=== PATIENT | male | born 1985 | race Caucasian/White ===

== ENCOUNTER 2021-10-20 13:24 | Outpatient (CLI) | payer OTHER, SELFPAY ==
--- NOTE | ~2021-10-20 | XR_ITS ---
XR_[id number] DATE: 10/20/2021 13:50 INDICATION: Posterior and bilateral neck pain TECHNIQUE: AP, open-mouth, lateral views COMPARISON: None FINDINGS: There is levoscoliosis of the cervical and upper thoracic spine and prominent reversal cerv ical curvature. There is mild degenerative disc disease C3-4 and C4-5. C1 and C2 are normally aligned and the odontoid process is intact. No fracture or dislocation or lock ed facet or prevertebral soft tissue swelling. IMPRESSION: Levoscoliosis of cervical and upper thoracic spine Reversal cervical curvature Mild degenerative disc disease at C3-4 and C4-5 Reviewed, dictated and finalized at [facility]. Reviewed, dictated and finalized at [facility].
[2021-10-20 13:36] LABS: Basophils Absolute Auto 0.06 K/mm3 (0.00-0.10); Basophils Percent Auto 0.5 % (0.0-1.0); Eosinophils Absolute Auto 0.17 K/mm3 (0.02-0.50); Eosinophils Percent Auto 1.5 % (1.0-6.0); Hematocrit 48.3 % (40.0-54.0); Hemoglobin 15.8 g/dL (14.0-18.0); Immature Granulocyte Absolute 0.04 K/mm3 (0.00-0.00); Immature Granulocyte Percent A 0.3 % (0.0-0.0); Lymphocytes Absolute Auto 2.92 K/mm3 (1.10-4.50); Lymphocytes Percent Auto 25.4 % (18.0-42.0); Mean Corpuscular HGB Conc 32.7 g/dL (32.0-36.0); Mean Corpuscular Hemoglobin 29.6 pg (27.0-31.0); Mean Corpuscular Volume 90.4 fL (78.0-102.0); Mean Platelet Volume 10.3 fl (8.7-11.0); Monocytes Absolute Auto 0.57 K/mm3 (0.10-0.90); Neutrophils Absolute Auto 7.7 K/mm3 (1.7-7.2); Neutrophils Percent Auto 67.3 % (50.0-70.0); Platelet Count Result 223 K/mm3 (150-420); Red Blood Count 5.34 M/mm3 (4.70-6.10); Red Cell Distribution Width 13.8 % (11.6-14.4); White Blood Count 11.5 K/mm3 (4.8-10.8)
[2021-10-20 13:52] LABS: Alanine Aminotransferase 25 U/L (16-63); Albumin Level 3.7 g/dL (3.4-5.0); Alkaline Phosphatase 99 U/L (46-116); Anion Gap 8 mmol/L (8-16); Aspartate Amino Transferase 18 U/L (15-37); Bilirubin,Total 0.6 mg/dL (0.00-1.00); Blood Urea Nitrogen 14 mg/dL (7-18); CRP 1.7 mg/dL (0.0-0.9); Calcium 9.5 mg/dL (8.5-10.1); Carbon Dioxide 27 mmol/L (21-32); Chloride 104 mmol/L (98-108); Estimated Glomerular Filt Rate 49; Glucose 92 mg/dL (70-99); Osmolality Calculated 288 mOsm/kg (285-295); Potassium 4.2 mmol/L (3.5-5.1); Sodium 139 mmol/L (136-145); Total Protein 8.6 g/dL (6.4-8.2)
== END 2021-10-20 13:25 | disposition home or self-care (01) ==
LOC: CHSIMG 13:27
PROVIDERS: PCP Internal Medicine; Visit Provider Nurse Practitioner Family
DX: R94.4 Abnormal results of kidney function studies (principal); M54.2 Cervicalgia
CPT/HCPCS: 36415; 72040; 80053; 85025; 86140

== ENCOUNTER 2021-11-01 15:17 | Outpatient (CLI) | payer OTHER, SELFPAY ==
--- NOTE | ~2021-11-01 | US_ITS ---
US retroperitoneal comp 11/01/2021 15:44 Procedure: Realtime transabdominal ultrasound of the kidneys and bladder. Indication: Abnormal renal function Comparison: No prior studies for comparison. Findings: Right renal echotexture is slightly increased. No masses, hydronephrosis or stones. The rig ht kidney measures 9.4 cm and left kidney measures 10.5 cm. Bladder within normal limits. Impression: 1: Slightly increased right renal echotexture, nonspecific. Otherwise, unremarkable testicular ultras ound. Reviewed, dictated and finalized at location [facility]. Impression: 1: Slightly increased right renal echotexture, nonspecific. Otherwise, unremark able testicular ultrasound.
== END 2021-11-01 15:18 | disposition home or self-care (01) ==
LOC: CHSIMG 15:18
PROVIDERS: PCP Internal Medicine; Visit Provider Internal Medicine
DX: R94.4 Abnormal results of kidney function studies (principal)
CPT/HCPCS: 76770

== ENCOUNTER 2023-05-24 14:11 | Outpatient (CLI) | payer OTHER, SELFPAY ==
--- NOTE | ~2023-05-24 | XR_ITS ---
XR shoulder LT min 2V DATE: 05/24/2023 14:41 INDICATION: Shoulder pain TECHNIQUE: 4 views COMPARISON: None FINDINGS: No fracture or dislocation, periosteal reaction or bone destruction or abnormal soft tissue calcification. IMPRESSION: No significant shoulder abnormality Reviewed, dictated and finalized at [facility]. [place] [employer]IST
--- NOTE | ~2023-05-24 | XR_ITS ---
XR shoulder RT min 2V DATE: 05/24/2023 14:41 INDICATION: Shoulder pain. No known injury. TECHNIQUE: 4 views COMPARISON: 04/09/2019 right shoulder FINDINGS: No fracture or dislocation, periosteal reaction or bone destruction or abnormal soft tissue calcification is detected. IMPRESSION: Negative Reviewed, dictated and finalized at location [facility]. 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
[2023-05-24 14:44] LABS: Basophils Absolute Auto 0.05 K/mm3 (0.00-0.10); Basophils Percent Auto 0.5 % (0.0-1.0); Eosinophils Absolute Auto 0.23 K/mm3 (0.02-0.50); Eosinophils Percent Auto 2.4 % (1.0-6.0); Hemoglobin 15.2 g/dL (14.0-18.0); Immature Granulocyte Absolute 0.03 K/mm3 (0.00-0.00); Immature Granulocyte Percent A 0.3 % (0.0-0.0); Lymphocytes Absolute Auto 3.36 K/mm3 (1.10-4.50); Lymphocytes Percent Auto 34.7 % (18.0-42.0); Mean Corpuscular HGB Conc 32.3 g/dL (32.0-36.0); Mean Corpuscular Hemoglobin 28.4 pg (27.0-31.0); Mean Corpuscular Volume 87.7 fL (78.0-102.0); Mean Platelet Volume 10.7 fl (8.7-11.0); Monocytes Absolute Auto 0.66 K/mm3 (0.10-0.90); Monocytes Percent Auto 6.8 % (2.0-11.0); Neutrophils Absolute Auto 5.3 K/mm3 (1.7-7.2); Neutrophils Percent Auto 55.3 % (50.0-70.0); Platelet Count Result 249 K/mm3 (150-420); Red Blood Count 5.36 M/mm3 (4.70-6.10); Red Cell Distribution Width 13.3 % (11.6-14.4); White Blood Count 9.7 K/mm3 (4.8-10.8)
[2023-05-24 15:30] LABS: Alanine Aminotransferase 29 U/L (16-63); Albumin Level 3.6 g/dL (3.4-5.0); Alkaline Phosphatase 87 U/L (46-116); Anion Gap 11 mmol/L (8-16); Aspartate Amino Transferase 25 U/L (15-37); Bilirubin,Total 0.6 mg/dL (0.00-1.00); Blood Urea Nitrogen 13 mg/dL (7-18); CRP 1.1 mg/dL (0.0-0.9); Calcium 9.4 mg/dL (8.5-10.1); Carbon Dioxide 25 mmol/L (21-32); Chloride 104 mmol/L (98-108); Estimated Glomerular Filt Rate 55; Glucose 97 mg/dL (70-99); Osmolality Calculated 290 mOsm/kg (285-295); Potassium 4.4 mmol/L (3.5-5.1); Sodium 140 mmol/L (136-145); Thyroid Stimulating Hormone 1.21 uIU/mL (0.36-3.74); Total Protein 7.8 g/dL (6.4-8.2); Uric Acid 8.3 mg/dL (3.5-7.2)
[2023-05-31 05:23] LABS: Cyclic Citrullinated Peptide <16 Units (<20)
== END 2023-05-24 14:12 | disposition home or self-care (01) ==
LOC: CHSLAB 14:13
PROVIDERS: PCP Internal Medicine; Visit Provider Internal Medicine
DX: N18.2 Chronic kidney disease, stage 2 (mild) (principal); M25.512 Pain in left shoulder; M25.511 Pain in right shoulder
CPT/HCPCS: 36415; 73030; 80053; 84443; 84550; 85025; 86038; 86140; 86200